=== PATIENT | male | born 1965 | race Caucasian/White ===

== ENCOUNTER 2025-01-20 10:48 | Outpatient (CLI) | payer OTHER, SELFPAY ==
[2025-01-20 11:34] LABS: Basophils Percent Auto 0.5 % (0.2-1.2); Eosinophils Absolute Auto 0.1 K/mm3 (0-0.3); Eosinophils Percent Auto 0.9 % (0-4.4); Hematocrit 50.7 % (42.0-52.0); Hemoglobin 16.4 g/dL (14.0-18.0); Immature Granulocyte Absolute 0.02 K/mm3 (0.00-0.031); Immature Granulocyte Percent A 0.2 % (0-0.5); Lymphocytes Absolute Auto 0.94 K/mm3 (0.9-3.2); Lymphocytes Percent Auto 10.6 % (18.3-44.2); Mean Corpuscular HGB Conc 32.3 g/dl (32-36); Mean Corpuscular Hemoglobin 30.8 pg (26-34); Mean Corpuscular Volume 95.1 fl (80-100); Monocytes Absolute Auto 0.5 K/mm3 (0.1-0.6); Monocytes Percent Auto 6.1 % (2.6-8.5); Neutrophils Absolute Auto 7.2 K/mm3 (1.3-6.7); Neutrophils Percent Auto 81.7 % (45.5-73.1); Platelet Count Result 262 k/mm3 (150-375); Red Blood Count 5.33 M/mm3 (4.6-6.20); Red Cell Distribution Width 12.1 % (11.5-14.5); White Blood Count 8.9 K/mm3 (4.5-10.0)
--- OUTSIDE RECORDS SUMMARY | 2025-01-20 11:41 | XMS_ITS | Continuity of Care Document ---
Author Organization [facility] Address [address] [place] [address] Phone Care Team Providers Care Building Inspection Engineer Name Role Phone Anne Garland DO Unavailable Unavailable Procedures Procedure Date Respirator Questionnaire With PFT Advance Directives Directive Yes / No Effective Date File Name No Information Encounters Encounter Description Practice Location Reason(s) For Visit Diagnoses Date Provider Providers Copied on Encounter [facility] [address] [facility], [place], [place], [id number], tel:[phone] [facility] No Information 2 Dada Rodríguez. [address] [facility], [address], [place], [place], [id number] , [place]. tel: [phone] Family History Family Member Type Diagnosis Age At Onset No Information Payers Payer name Insurance type Covered alliance party ID Authoriza tisamson(s) Xochitl Lindo Cement [id number] Social History Type Description Quantity Date Captured Comments Sex Male Smoking Status No Information Chief Complaint And Reason For Visit No Information Reason For Referral Reason For Referral No Information History Of Present Illness Encounter Date Complaint History Of Prese nt Illness No Information Functional Status Date Functional Assessmen t No Information Instructions Date Instruction Additional Infor mation No Information Assessments Type Assessment Date No Information Patient Care Teams Name Effective Dates (start - stop) Status Members No Information
--- OUTSIDE RECORDS SUMMARY | 2025-01-20 11:42 | XMS_ITS | Patient Health Summary ---
Author Organization [facility] Address [address] [place] [address] Care Team Providers Care Inspector Watch Train Name Role Phone Unavailable Primary Care Provider Unavailabl e Note from [facility],non-owned Affiliates and Associated Physician Practices is amultiple site organization consisting of ambulatory clinics and hospital sitesin [place], [place], [place] and [place]. This disclosure is being madepursuant to the Care Everywhere program and may not contain all information available regarding this patient. Last updated 18.[facility] Allergies No known active allergies Medications * Be aware that medications may not be up to date on this document. Alwaysverify current medications with the patient. * cyanocobalamin (VITAMIN B-12) injection(Started 04/12/2022) ADMINISTER 1 ML IN THE MUSCLE EVERY WEEK * acetaminophen (TYLENOL) 325 MG tablet(Started 04/28/2021) Take 650 mg by mouth every 4 hours as needed * ascorbic acid (VITAMIN C) 125 MG TABS half tablet Take by mouth once daily * VITAMIN E PO Take 1 tablet by mouth once daily * VITAMIN K PO Take 1 tablet by mouth once daily * LYSINE PO Take 1 tablet by mouth once daily * VITAMIN D PO Take 1 tablet by mouth once daily * traMADol (ULTRAM) 50 MG tablet(Started 05/01/2022) Take 1 (one) tablet by mouth every 6 hours as needed for Pain Active Problems Problem Noted Date Diagnosed Date 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 Cancer Staging:Clinical:Stage IA(cT1a, cN0, cM0) - Unsigned Pathologic stage from 11/19/2022:Stage IA(pT1a, cN0, cM0) - Signed by Anibal Edwards MD on 11/19/2022 Social History Tobacco Use Types Packs/Day Years Used Date Smoking Tobacco: Former Cigarettes Q uit: 04/2002 Smokeless Tobacco: Never Alcohol Use Standard Drinks/Week Comments Not Currently 0 (1 standard drink = 0.6 oz pur e alcohol) none for ten years Sex and Gender Information Value Date Recorded Sex Assigned at Not on file Gender Identity Not on file Sexual Orientation Not on file Last Filed Vital Signs Vital Sign Reading Time Taken Comments Blood Pressure 166/94 05/21/2022 10:36 AM CDT Pulse 86 05/21/2022 10:36 AM CDT Temperature 36.7 C (98 F) 05/21/2022 10:36 AM CDT Respiratory Rate 18 05/21/2022 10:36 AM CDT Oxygen Saturation 93% 05/21/2022 10:36 AM CDT Inhaled Oxygen Concentration - - Weight 113.9 kg (251 lb) 05/21/2022 10:36 AM CDT Height 180.3 cm (5' 11 ) 05/21/2022 10:36 AM CDT Body Mass Index 35.01 05/21/2022 10:36 AM CDT Procedures * PATHOLOGY TISSUE(Performed 05/01/2022) Performed for Malignant melanoma of right thigh (HCC) * EXCISION LESION LEG/KNEE(Performed 05/01/2022) Performed for Malignant melanoma of right thigh (HCC) * DERMATOPATHOLOGY(Performed 04/10/2022) Results * PATHOLOGY TISSUE (05/01/2022 8:18 AM CDT) Case Report Surgical Pathology Report Case: [id number] Authorizing Provider: Anibal Edwards MD Collected: 05/01/2022 08:18 AM Ordering Location: [facility] Received: 05/01/2022 10:13 AM Pathologist: Rodrick Marc MD Specimens: A) - Skin, RIGHT THIGH MELANOMA STITCH AT 12:00 B) - Margin, Right Thigh Melanoma superior margin C) - Margin, RightThigh Melanoma inferior margin 05/09/2022 4:03 PM [facility] Final Diagnosis Skin, right thigh melanoma, excision (A): - No residual melanoma - Skin with scar Skin, right thigh melanoma superior margin, excision (B): - No evidence of malignancy Skin, right thigh melanoma inferior margin, excision (C): - No evidence of malignancy 05/09/2022 4:03 PM [facility] Microscopic Description and Comment Microscopic examination substantiates the final diagnosis. Immunostains for HMB-45 and SOX-10 (blocks A6 and A7) are negative for residual melanoma 05/09/2022 4:03 PM [facility] Clinical History The patient is a 56 year old male with history of melanoma of right anterior thigh. 05/09/2022 4:03 PM [facility] Gross Description The requisition and specimen are identified with the patient's name, John Rutledge. Received in formalin, specimen A, is a segal skin tone circular skin excision measuring 3.3 x 3.2 cm excised to a depth of 1.2 cm. The specimen is designated 12:00 with suture. There is a segal crusted lesion measuring 1.0 x 0.9 cm that is 1.3 cm from 12:00, 1.2 cm from 3:00, 1.5 cm from 6:00, and 1.1 cm from 9:00. The specimen is inked as follows: Blue-3:00; green-9:00; black-deep. The specimen is sectioned sequentially from 12:00 to 6:00. The lesion appears to be limited to epidermis. The uninvolved tissue is yellow-segal. Wire Straightening Machine Operator sections submitted as follows: A1 to A2 - 12:00 margin perpendicularly sectioned; A3 to A4 - 6:00 margin perpendicularly sectioned; A5 to A7 - entire lesion from 12:00 to 6:00. After histologic examination the remaining specimen is submitted in cassettes A8 to A10. Received in formalin, specimen B, is a segal skin tone skin excision measuring 2.2 x 1.7 x 1.2 cm. The surgical margin is inked blue. The specimen is serially sectioned show yellow-segal tissue with no gross abnormalities. A customer loyalty representative section is submitted in cassette B1. Received in formalin, specimen C, is a segal skin tone skin excision measuring 2.2 x 1.5 x 1.2 cm. The surgical margin is inked blue. The specimen is serially sectioned show yellow-segal tissue with no gross abnormalities. A customer loyalty representative section is submitted in cassette C1. /DJS 05/09/2022 4:03 PM CDT [facility] Disclaimer The performance characteristics of all immunohistochemical and indirect immunofluorescence stains (if any) cited in this report were determined by the Histopathology Laboratory of [facility]. Some of these tests were developed by our own laboratory and have not been cleared or approved by the US Food and Drug Administration. The FDA does not require this test to go through premarket FDA review. These tests are used for clinical purposes. They should not be regarded as investigational or for research. This laboratory is certified under the Clinical Laboratory Improvement Amendments (CLIA) as qualified to perform high complexity clinical laboratory testing. This case has been personally reviewed and interpreted by the attending (teaching) pathologist. 05/09/2022 4:03 PM CDT [facility] Embedded Images 05/09/2022 4:03 PM CDT [facility] Biopsy, Excision TISSUE SPECIMEN FROM SKIN / Unknown 05/01/2022 8:18 AM CDT 05/01/2022 10:13 AM CDT Comment:Pre-op diagnosis: MELANOMA OF RIGHT ANTERIOR THIGH Biopsy, Excision (Margin) 05/01/2022 8:25 AM CDT 05/01/2022 10:13 AM CDT Comment:Pre-op diagnosis: MELANOMA OF RIGHT ANTERIOR THIGH Biopsy, Excision (Margin) 05/01/2022 8:26 AM CDT 05/01/2022 10:13 AM CDT Comment:Pre-op diagnosis: MELANOMA OF RIGHT ANTERIOR THIGH Anibal Edwards MD LAB - PATHOLOGY/CYTO LOGY ORDERABLES [facility] [address] [phone] * DERMATOPATHOLOGY (04/10/2022 12:00 AM CDT) Case Report Dermatopathology Report Case: [id number] Authorizing Provider: Vignesh Ramos MD Collected: 04/10/2022 12:00 AM Ordering Location: [facility] Received: 04/11/2022 04:12 PM Pathologist: Goldie Meng MD Specimen: Skin, right anterior thigh 6:24 PM CDT DERMATOPATHOLOGY LABORATORY Amended Report Change Path# from [id number] to [id number]. 6:24 PM CDT DERMATOPATHOLOGY LABORATORY Final Diagnosis Specimen A. SKIN, right anterior thigh: MALIGNANT MELANOMA, SUPERFICIAL SPREADING TYPE. BRESLOW DEPTH 0.4 MM, HOMAR LEVEL III PRESENT AT MARGIN (C43.71) (see microscopic description and synoptic table) 6:24 PM T DERMATOPATHOLOGY LABORATORY Amendment electronically signed by Goldie Meng MD on 04/17/2022 at 6:24 PM Clinical History BCCA vs MM vs other. Path # [id number]. 6:24 PM CDT DERMATOPATHOLOGY LABORATORY Gross Description Specimen A: Received is one formalin filled container labeled with the patient's name and designated right anterior thigh. The specimen consists of a shave biopsy measuring [id number] & [id number]. Jar 0. 6:24 PM CDT DERMATOPATHOLOGY LABORATORY Microscopic Description Specimen A. SKIN, right anterior thigh: There is a proliferation melanocytes distributed in an irregular pattern singly and in nests at all levels of the epidermis. In the dermis there are irregular nests and single scattered melanocytes. MART-1/Melan-A immunohistochemical stain highlights the melanocytes as above. This lesion is present at the margin of the specimen. 6:24 PM CDT DERMATOPATHOLOGY LABORATORY Disclaimer An external and internal positive and negative controls are appropriate for the histochemical, immunohistochemical and immunofluorescence stain(s) in this case (if any), except where stated explicitly. The performance characteristics of the stain(s) cited in this report were developed and its performance characteristic determined by the Dermatopathology Laboratory at [facility], directed by Dr. New Ely. These tests need not be, and therefore are not, approved by the [place] Food and Drug Administration. The tests are used for clinical purposes. Billing Codes Specimen Charges Stain Charges 28123 1 45459 1 2 6:24 PM CDT DERMATOPATHOLOGY LABORATORY Embedded Images 2 6:24 PM CDT DERMATOPATHOLOGY LABORATORY Synoptic Report MELANOMA OF THE SKIN: Biopsy MELANOMA OF THE SKIN: BIOPSY - All Specimens 8th Edition - Protocol posted: 02/05/2022 SPECIMEN Procedure: Biopsy, shave Specimen Laterality: Right TUMOR Tumor Site: Skin of lower limb and hip: anterior thigh Histologic Type: Superficial spreading melanoma (low-cumulative sun damage (CSD) melanoma) Maximum Tumor (Breslow) Thickness (Millimeters): At least: 0.4 mm : tumor is present at the surgical margin; therefore, the final depth may exceed the current one Ulceration: Not identified Anatomic (Homar) Level: At least level: III : tumor is present at the surgical margin; therefore, the final depth may exceed the current one Mitotic Rate: None identified Microsatellite(s): Not identified Lymphovascular Invasion: Not identified Neurotropism: Not identified Tumor-Infiltrating Lymphocytes: Present, nonbrisk Tumor Regression: Present MARGINS: Margin Status for Invasive Melanoma: Invasive melanoma present at margin Margin(s) Involved by Invasive Melanoma: Deep Margin Status for Melanoma in situ: Melanoma in situ present at margin Margin(s) Involved by Melanoma in Situ: Peripheral PATHOLOGIC STAGE CLASSIFICATION (pTNM, AJCC 8th Edition): pT Category: pT1a Comment(s): This case was also reviewed by Dr. Salina Robles, who agrees 2 6:24 PM CDT DERMATOPATHOLOGY LABORATORY Pathology/Cytolog y TISSUE SPECIMEN FROM SKIN / Unknown 04/10/2022 04/11/2022 4:12 PM CDT Vignesh Ramos MD LAB - PATHOLOGY/CYTO LOGY ORDERABLES DERMATOPATHOLOGY LABORATORY [facility] - Department of Dermatology [address], [address] [phone]
--- OUTSIDE RECORDS SUMMARY | 2025-01-20 11:42 | XMS_ITS | Clinical Summary ---
Author Organization [facility] Address [address] [place] [address] Care Team Providers Care Quick Sketch Artist Name Role Phone Unavailable Primary Care Provider Unavailabl e Source Comments [facility],non-owned Affiliates and Associated Physician Practices is amultiple site organization consisting of ambulatory clinics and hospital sitesin [place], [place], [place] and [place]. This disclosure is being madepursuant to the Care Everywhere program and may not contain all information available regarding this patient. Last updated 18.[facility] Allergies No known active allergies Medications * Be aware that medications may not be up to date on this document. Alwaysverify current medications with the patient. Medication Sig Dispensed Refills Start Date End Date Status cyanocobalamin (VITAMIN B-12) injection ADMINISTER 1 ML IN THE MUSCLE EVERY WEEK 04/12/2022 Active acetaminophen (TYLENOL) 325 MG tablet Take 650 mg by mouth every 4 hours as needed 04/28/2021 Active ascorbic acid (VITAMIN C) 125 MG TABS half tablet Take by mouth once daily Active VITAMIN E PO Take 1 tablet by mouth once daily Active VITAMIN K PO Take 1 tablet by mouth once daily Active LYSINE PO Take 1 tablet by mouth once daily Active VITAMIN D PO Take 1 tablet by mouth once daily Active traMADol (ULTRAM) 50 MG tablet Take 1 (one) tablet by mouth every 6 hours as needed for Pain 12 tablet 05/01/2022 Active Additional Information Patient not taking.Reported on 05/21/2022 Active Problems Problem Noted Date Diagnosed Date [...] Mass Index 35.01 05/21/2022 10:36 AM CDT Plan of Treatment Health Maintenance Due Date Last Done Comments COLOGUARD (AGES 45-75) - COL ON CA SCREENING 1965 COLON MONITORING 1964 COLONOSCOPY - COLON CA SCREENING 1964 CT COLONOGRAPHY - COLON CA SCREENING 1964 Colorectal Cancer Screening 1964 FIT - COLON CA SCREENING 1964 FLEX SIG - COLON CA SCREENING 1964 LIPID TESTING 1964 HIV SCREENING 1979 HEPATITIS C SCREENING 08/15/1982 DTAP/TDAP/TD VACCINES (1 - Tdap) 1983 PNEUMOCOCCAL VACCINE 50+ (1 of 1 - PCV) 2014 ZOSTER VACCINE (1 of 2) 2014 SCREENING FOR DIABETES 04/23/2022 COVID-19 VACCINE (1 - 2023-2 5 season) 2024 INFLUENZA VACCINE (#1) 2024 DEPRESSION SCREENING 11/16/2024 Respiratory Syncytial Virus (RSV) Vaccine Pt: or over 60 yrs (1 - 1-dose 75+ series) 2039 HEPATITIS B VACCINE Aged Out No longe r eligible based on patient's age to complete this topic HIB VACCINE Aged Out No longer eligi ble based on patient's age to complete this topic HPV VACCINE Aged Out No longer eligi ble based on patient's age to complete this topic MENINGOCOCCAL (Group B) VACCINE Aged Out No longer eligible based on patient's age to complete this topic MENINGOCOCCAL VACCINE Aged Out No billy raul eligible based on patient's age to complete this topic PNEUMOCOCCAL VACCINE Aged Out No long er eligible based on patient's age to complete this topic John Rutledge Personal/Family Self 1965 [address] [place] [phone]
--- OUTSIDE RECORDS SUMMARY | 2025-01-20 11:42 | XMS_ITS | Referral Summary ---
Author Organization [facility] Address [address] [place] [address] Care Team Providers Care Hospital Tray Service Worker Name Role Phone Unavailable Primary Care Provider Unavailabl e Source Comments [facility],non-owned Affiliates and Associated Physician Practices is amultiple site organization consisting of ambulatory clinics and hospital sitesin [place], [place], [place] and [place]. This disclosure is being madepursuant to the Care Everywhere program and may not contain all information available regarding this patient. Last updated 18.[facility] Allergies No known active allergies Medications * [...] 05/21/2022 10:36 AM CDT Plan of Treatment Not on file
--- OUTSIDE RECORDS SUMMARY | 2025-01-20 11:42 | XMS_ITS | Encounter Summary ---
Author Organization [facility] Address [address] [place] [address] Care Team Providers Care Academic Administrator Name Role Phone Unavailable Primary Care Provider Unavailabl e Encounter Details Date Type Department Care Team (Late st Contact Info) Description 04/11/2022 Lab Requisition [facility] [address] [place] [phone] Vignesh Ramos MD [address] [place] [address] Social History Tobacco Use Types Packs/Day Years Used Date Smoking Tobacco: Never Assessed Sex and Gender Information Value Date Recorded Sex Assigned at Not on file Gender Identity Not on file Sexual Orientation Not on file documented as of this encounter Plan of Treatment Not on file documented as of this encounter Procedures Procedure Name Priority Date/Time Associated Diagnosis Comments DERMATOPATHOLOGY Routine 04/10/2022 12:0 0 AM CDT documented in this encounter Results * DERMATOPATHOLOGY (04/10/2022 12:00 AM CDT) Case Report Dermatopathology Report Case: [id number] Authorizing Provider: Vignesh Ramos MD Collected: 04/10/2022 12:00 AM Ordering Location: [facility] Received: 04/11/2022 04:12 PM Pathologist: Goldie Meng MD Specimen: Skin, right anterior thigh 2 6:24 PM T DERMATOPATHOLOGY LABORATORY Amended Report Change Path# from [id number] to [id number]. 2 6:24 PM T DERMATOPATHOLOGY LABORATORY Final Diagnosis Specimen A. SKIN, right anterior thigh: MALIGNANT MELANOMA, SUPERFICIAL SPREADING TYPE. BRESLOW DEPTH 0.4 MM, HOMAR LEVEL III PRESENT AT MARGIN (C43.71) (see microscopic description and synoptic table) 2 6:24 PM T DERMATOPATHOLOGY LABORATORY Amendment electronically signed by Goldie Meng MD on 04/17/2022 at 6:24 PM Clinical History BCCA vs MM vs other. Path # [id number]. 2 6:[address] [facility] DERMATOPATHOLOGY LABORATORY Gross Description Specimen A: Received is one formalin filled container labeled with the patient's name and designated right anterior thigh. The specimen consists of a shave biopsy measuring [id number] & [id number]. Jar 0. 2 6:[address] [facility] DERMATOPATHOLOGY LABORATORY Microscopic Description Specimen A. SKIN, right anterior thigh: There is a proliferation melanocytes distributed in an irregular pattern singly and in nests at all levels of the epidermis. In the dermis there are irregular nests and single scattered melanocytes. MART-1/Melan-A immunohistochemical stain highlights the melanocytes as above. This lesion is present at the margin of the specimen. 2 6:[address] [facility] DERMATOPATHOLOGY LABORATORY Disclaimer An external and internal positive and negative controls are appropriate for the histochemical, immunohistochemical and immunofluorescence stain(s) in this case (if any), except where stated explicitly. The performance characteristics of the stain(s) cited in this report were developed and its performance characteristic determined by the Dermatopathology Laboratory at [facility], directed by Dr. [place] Ely. These tests need not be, and therefore are not, approved by the [place] Food and Drug Administration. The tests are used for clinical purposes. Billing Codes Specimen Charges Stain Charges 49100 1 36728 1 2 6:24 PM CDT DERMATOPATHOLOGY LABORATORY [...] LAB - PATHOLOGY/CYTO LOGY ORDERABLES DERMATOPATHOLOGY LABORATORY [facility] - Department of Dermatology [facility] Medicine [address] [place] [address], [address] [phone] documented in this encounter Visit Diagnoses Not on filedocumented in this encounter
[2025-01-20 11:46] LABS: Alanine Aminotransferase 25 U/L (6-50); Albumin Level 4.4 g/dL (3.5-5.1); Alkaline Phosphatase 60 U/L (38-126); Amylase 71 U/L (30-110); Anion Gap 14 mmol/L (4-12); Aspartate Amino Transferase 28 U/L (17-59); Bilirubin,Total 0.7 mg/dL (0.2-1.3); Blood Urea Nitrogen 17 mg/dL (9-20); Calcium 9.3 mg/dL (8.4-10.2); Carbon Dioxide 24 mmol/L (22-30); Chloride 101 mmol/L (98-107); Cholesterol 182 mg/dL (0-200); Creatinine Urine 71.3 mg/dL; Estimated Glomerular Filt Rate > 60; Glucose 100 mg/dL (65-110); HDL Direct 28 mg/dL; Lipase 94 U/L (23-300); Potassium 4.4 mmol/L (3.4-5.0); Sodium 139 mmol/L (137-145); Triglycerides 83 mg/dL (<150)
[2025-01-20 11:51] LABS: Microalbumin Urine Random < 6.0 mg/L (0-16.7)
[2025-01-20 11:52] LABS: MALB Creatinine Ratio < 8.4 mg/g (0-30)
[2025-01-20 11:57] LABS: LDL Cholesterol Direct 118 mg/dL
[2025-01-20 12:20] LABS: Thyroid Stimulating Hormone Reflex 0.925 uIU/mL (0.465-4.68)
[2025-01-20 12:37] LABS: Hepatitis C Virus Antibody Negative (Negative)
== END 2025-01-20 10:49 | disposition home or self-care (01) ==
LOC: ANHLAB 10:49
PROVIDERS: PCP Family Medicine Adolescent Medicine; Visit Provider Nurse Practitioner Family
DX: I10 Essential (primary) hypertension (principal); E78.00 Pure hypercholesterolemia, unspecified; R14.0 Abdominal distension (gaseous); Z87.11 Personal history of peptic ulcer disease; Z11.59 Encounter for screening for other viral diseases
CPT/HCPCS: 36415; 80053; 80061; 82043; 82150; 83690; 84443; 85025; 86803

== ENCOUNTER 2025-02-06 14:01 | Outpatient (CLI) | payer OTHER, SELFPAY ==
--- NOTE | 2025-02-06 14:19 | ECHO_ITS ---
Patient Info Name: John Gould [facility] Age: 59 years : 1965 Gender: Male Ht: 72 in Wt: 245 lbs BSA: 2.41 m2 HR: 70 bpm BP: 165 / 91 mmHg Technical Quality: Good Exam Date: 02/06/2025 2:36 PM Exam Location: Echo Lab Patient Status: Outpatient Admit Date: 02/06/2025 Staff Ordering Physician: Steph Gardiner APRN Form Stripper: Jimena Quispe RDCS Attending Provider: Steph Gardiner APRN Referring Physician: Abdifatah GR; Exam Type: CA echo doppler color flow Study Info Indications R60.9 - Edema, unspecified Complete two-dimensional, color flow and Doppler transthoracic echocardiogram is performed. Summary 1. Complete two-dimensional, color flow and Doppler transthoracic echocardiogram is performed. 2. Left ventricular chamber dimension is normal. 3. Left ventricular systolic function is normal, estimated at 60-65%. 4. There is moderate concentric increased left ventricular wall thickness. 5. The left ventricular diastolic function is grade I diastolic dysfunction. 6. E/e' 8 is minimally elevated. 7. There is mild aortic valve sclerosis. 8. There is trace mitral valve regurgitation. 9. There is trace tricuspid valve regurgitation. 10. No pulmonary hypertension, estimated pulmonary arterial systolic pressure is 36 mmHg. Left Ventricle E/e' 8 is minimally elevated. Left ventricular chamber dimension is normal. Left ventricular systolic function is normal, estimated at 60-65%. There is moderate concentric increased left ventricular wall thickness. The left ventricular diastolic function is grade I diastolic dysfunction. Right Ventricle Right ventricular chamber dimension is normal. Right ventricular systolic function is normal. Left Atria Left atrial chamber dimension is normal. Right Atria Right atrial chamber dimension is normal. Aortic Valve The aortic valve is trileaflet. There is mild aortic valve sclerosis. There is no aortic valve stenosis. There is no aortic valve regurgitation. Pulmonic Valve There is no pulmonic regurgitation. Mitral Valve There is no mitral valve stenosis. There is trace mitral valve regurgitation. Tricuspid Valve There is trace tricuspid valve regurgitation. No pulmonary hypertension, estimated pulmonary arterial systolic pressure is 36 mmHg. Pericardium/Pleural There is no pericardial effusion. Inferior Vena Cava Normal inferior vena cava with >50% collapse upon inspiration consistent with normal right atrial pressure, 5 mmHg. Aorta The aortic root size at the sinus of Valsalva is normal. Left Ventricular Outflow Tract Name Value Normal LVOT 2D LVOT Diameter 2.2 cm LVOT Doppler LVOT Peak Gradient 6 mmHg LVOT Mean Gradient 3 mmHg LVOT VTI 26 cm LVOT VTI/AV VTI Ratio 1.0 LVOT Stroke Volume 95 ml LVOT CO 6.4 l/min LVOT CI 2.7 l/min/m2 Pulmonic Valve Name Value Normal RVOT Doppler RVOT Peak Gradient 1 mmHg PV Doppler PV Peak Gradient 5 mmHg Mitral Valve Name Value Normal MV Doppler MV Decel [place] 419 cm/s2 MV PHT 52 ms MV Area (PHT) 4.2 cm2 4.0-5.0 MV Diastolic Function MV E Peak Velocity 75 cm/s MV A Peak Velocity 72 cm/s MV E/A 1.0 MV Decel Time 179 ms Tricuspid Valve Name Value Normal TV Regurgitation Doppler TR Peak Velocity 280 cm/s TR Peak Gradient 31 mmHg Estimated PAP/RSVP RA Pressure 5 mmHg <=5 PA Systolic Pressure 36 mmHg <36 RV Systolic Pressure 36 mmHg <36 Aorta Name Value Normal Ascending Aorta Ao Root Diameter (MM) 3.6 cm Ao Root Diam Index (MM) 1.5 cm/m2 Aortic Valve Name Value Normal AV Doppler AV Peak Velocity 129 cm/s AV Peak Gradient 7 mmHg AV Mean Gradient 4 mmHg AV VTI 27 cm AV Area (Cont Eq VTI) 3.6 cm2 >=3.0 AV Area (Cont Eq Kyaw) 3.5 cm2 AV Regurgitation 2D LVOT Area 3.7 cm2 Ventricles Name Value Normal LV Dimensions 2D/MM IVS Diastolic Thickness (2D) 1.7 cm 0.6-1.0 IVS Diastole Thickness (MM) 0.9 cm 0.6-1.0 LVID Diastole (2D) 3.7 cm 4.2-5.8 LVID Diastole (MM) 6.3 cm 4.2-5.8 LVIW Diastolic Thickness (2D) 1.2 cm 0.6-1.0 LVIW Diastolic Thickness (MM) 1.0 cm 0.6-1.0 LVID Systole (2D) 2.7 cm 2.5-4.0 LVID Systole (MM) 3.5 cm 2.5-4.0 LVOT Diameter 2.2 cm LV Mass (2D Cubed) 198.37 g 88.00-224.00 LV Mass Index (2D Cubed) 82 g/m2 49-115 Relative Wall Thickness (2D) 0.63 LV Mass (MM Cubed) 253.01 g 88.00-224.00 LV Mass Index (MM Cubed) 105 g/m2 49-115 Relative Wall Thickness (MM) 0.33 LV Fractional Shortening/Ejection Fraction 2D/MM LV Fractional Shortening (2D) 29 % 25-43 LV Fractional Shortening (MM) 44 % 25-43 LV EF (MM Teicholz) 74 % 52-72 LV EF (2D Teicholz) 56 % 52-72 LV Diastolic Volume (4C MOD) 103 ml LV EF (4C MOD) 58 % LV Diastolic Volume (2C MOD) 125 ml LV EF (2C MOD) 54 % LV Diastolic Volume (BP MOD) 113 ml 62-150 LV Diastolic Volume Index (BP MOD) 47 ml/m2 34-74 LV Systolic Volume (BP MOD) 53 ml 21-61 LV Systolic Volume Index (BP MOD) 22 ml/m2 11-31 LV EF (BP MOD) 53 % 52-72 LV Diastolic Length (4C) 9.3 cm LV Systolic Length (4C) 7.2 cm LV Stroke Volume (4C MOD) 59 ml Atria Name Value Normal LA Dimensions LA Dimension (MM) 3.8 cm 3.0-4.1 LA Volume (4C A-L) 56 ml LA Volume (BP A-L) 68 ml RA Dimensions RA Area (4C) 20.5 cm2 <=18.0 Report Signatures
--- OUTSIDE RECORDS SUMMARY | 2025-02-06 16:15 | XMS_ITS | Continuity of Care Document ---
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 [address] [facility], [address], [place], [place], [id number] , [place]. tel: [phone] Family History Family Member Type Diagnosis Age At Onset No Information Payers Payer name Insurance type Covered democrat ID Authoriza tisamson(s) [employer] [id number] Social History Type Description Quantity Date Captured [...]
--- OUTSIDE RECORDS SUMMARY | 2025-02-06 16:15 | XMS_ITS | Clinical Summary ---
Author Organization [facility] Address [address] 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 This disclosure is being madepursuant to the Care Everywhere program and may not contain all information available regarding this patient. Last updated 18.[facility] Allergies No known active allergies Medications * [...] to complete this topic MENINGOCOCCAL (Group B) VACC INE SHARED DECISION-MAKING Aged Out No longer eligibl e based on patient's age to complete this topic MENINGOCOCCAL GROUPS A/C/Y/W VACCINE Aged Out No longer eligible b ased on patient's age to complete this topic PNEUMOCOCCAL VACCINE Aged Out No long er eligible based on patient's age to complete this topic
--- OUTSIDE RECORDS SUMMARY | 2025-02-06 16:15 | XMS_ITS | Encounter Summary ---
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 Role Phone Unavailable Primary Care Provider Unavailabl e Encounter Details Date Type Department Care Team (Late st Contact Info) Description 04/11/2022 Lab Requisition [facility] [address] [facility] [place] [id number] Vignesh Ramos MD [address] [place] [address] Social History Tobacco Use Types [...] AM CDT) Case Report Dermatopathology Report Case: [id number] Authorizing Provider: Vignesh Ramos MD Collected: 04/10/2022 12:00 AM Ordering Location: [facility] Received: 04/11/2022 04:12 PM Pathologist: Goldie Meng MD Specimen: Skin, right anterior thigh 2 6:24 PM [facility] Amended Report Change Path# from [id number] to [id number]. 2 6:24 PM [facility] Final Diagnosis Specimen A. SKIN, right anterior thigh: MALIGNANT MELANOMA, SUPERFICIAL SPREADING TYPE. [place] DEPTH 0.4 MM, HOMAR LEVEL III PRESENT AT MARGIN (C43.71) (see microscopic description and synoptic table) 2 6:24 PM [facility] Amendment electronically signed by Goldie Meng MD on 04/17/2022 at 6:24 PM Clinical History [facility] vs MM vs other. Path # [id number]. 2 6:[address] [facility] Gross Description Specimen A: Received is one formalin filled container labeled with the patient's name and designated right anterior thigh. The specimen consists of a shave biopsy measuring [id number] & [id number]. Jar 0. 2 6:[address] [facility] Microscopic Description Specimen A. SKIN, right anterior thigh: There is a proliferation melanocytes distributed in an irregular pattern singly and in nests at all levels of the epidermis. In the dermis there are irregular nests and single scattered melanocytes. MART-1/Melan-A immunohistochemical stain highlights the melanocytes as above. This lesion is present at the margin of the specimen. 2 6:[address] [facility]ATH[facility] Disclaimer An external and internal positive and negative controls are appropriate for the histochemical, immunohistochemical and immunofluorescence stain(s) in this case (if any), except where stated explicitly. The performance characteristics of the stain(s) cited in this report were developed and its performance characteristic determined by the Dermatopathology Laboratory at [facility], directed by Dr. [place]. These tests need not be, and therefore are not, approved by the [place] Food and Drug Administration. The tests are used for clinical purposes. Billing Codes Specimen Charges Stain Charges 38668 1 [id number] 1 2 6:24 PM CDT DERMATOPATHOLOGY LABORATORY [...] DERMATOPATHOLOGY LABORATORY [facility] Department of Dermatology [facility] [address] [place] [address], [address] [phone] documented in this encounter Visit Diagnoses Not on filedocumented in this encounter
== END 2025-02-06 14:02 | disposition home or self-care (01) ==
LOC: ANHCARD 14:07
PROVIDERS: PCP Family Medicine Adolescent Medicine; Visit Provider Nurse Practitioner Family
DX: R60.9 Edema, unspecified (principal); I10 Essential (primary) hypertension
CPT/HCPCS: 93306